=== PATIENT | male | born 1980 | race Caucasian/White ===

== ENCOUNTER 2018-09-24 12:53 | Emergency (ER) | payer OTHER, MEDICAID ==
[~2018-09-24] VITALS: Ht 177.8 cm; Wt 63.5 kg
[2018-09-24 12:59] VITALS: Ht 177.8 cm; Wt 63.5 kg
[2018-09-24 13:22] LABS: BASOPHIL % 0.5 % (0-2); PLATELET COUNT 225 x10^3mcL (130-400)
[2018-09-24 13:23] LABS: RED CELL DISTRIBUTION WIDTH 15.4 % (11.5-14.5)
[2018-09-24 13:26] LABS: microscopic required? YES; urine erythrocyte 1+ (NEGATIVE)
[2018-09-24 13:41] LABS: CALCIUM 8.5 mg/dL (8.5-10.1); CARBON DIOXIDE 29.7 mmol/L (21-32); CHLORIDE SERUM 106 mmol/L (98-107); CREATININE SERUM 0.6 mg/dL (0.7-1.3); GFR1 > 60 mL/min; GLUCOSE SERUM 79 mg/dL (74-106); POTASSIUM SERUM 3.5 mmol/L (3.5-5.1); SODIUM SERUM 141 mmol/L (136-145)
[2018-09-24 13:45] LABS: ALBUMIN 3.8 g/dL (3.4-5.0); ALKALINE PHOSPHATASE 56 U/L (46-116); ALT/SGPT 20 U/L (16-63); AST/SGOT 14 U/L (15-37); BILIRUBIN TOTAL 0.73 mg/dL (0.20-1.00); TOTAL PROTEIN, SERUM 7.5 g/dL (6.4-8.2)
[2018-09-24 14:03] VITALS: BP 119/89
== END 2018-09-24 15:00 | disposition home or self-care (01) ==
LOC: ED 12:53
PROVIDERS: Emergency Medicine
DX: R30.0 Dysuria (principal); G82.20 Paraplegia, unspecified; Z88.6 Allergy status to analgesic agent; Z88.5 Allergy status to narcotic agent; Z88.8 Allergy status to other drugs, medicaments and biological substances
CPT/HCPCS: 36415; J3010